=== PATIENT | female | born 1975 | race Caucasian/White ===

== ENCOUNTER 2018-06-14 20:49 | Observation (INO) | payer BC, OTHER ==
[2018-06-14 21:20] LABS: PLATELET COUNT 235 10^3/uL (150-400)
[2018-06-14] MEDS ORDERED: METOPROLOL TARTRATE 25 MG TAB PO ONE (21:44)
--- NOTE | 2018-06-14 21:54 | EDPHY ---
H & P Stated Complaint: "HEART POUNDING, IRREGULAR HR X 24 HRS" Time Seen by Provider: 06/14/18 20:58 HPI/ROS: CHIEF COMPLAINT: Palpitations HISTORY OF PRESENT ILLNESS: 43-year-old female presents with palpitations. Onset of intermittent palpitations yesterday evening. The palpitations are frequent and rapid. Occasional dizziness when stands up from a seated position. No associated shortness of breath or chest pressure. No prior similar palpitations. No history of thyroid disease and no recent prolonged travel. REVIEW OF SYSTEMS: complete 10 point ROS reviewed and is negative except for the noted elements in the HPI - Personal History LMP (Females 10-55): IUD In Place Current Tetanus Diphtheria and Acellular Pertussis (TDAP): Yes Tetanus Vaccine Date: <10 YRS - Medical/Surgical History Hx Asthma: No Hx Chronic Respiratory Disease: No Hx Diabetes: No Hx Cardiac Disease: No Hx Renal Disease: No Hx Cirrhosis: No Hx Alcoholism: No Hx HIV/AIDS: No Hx Splenectomy or Spleen Trauma: No Other PMH: DENIES - Social History Smoking Status: Never smoked Alcohol Use: Sober Drug Use: None - Physical Exam Exam: General Appearance: Alert, pleasant Eyes: Pupils equal and round, no conjunctival pallor ENT, Mouth: Mucous membranes moist Neck: Normal inspection Respiratory: Lungs are clear to auscultation Cardiovascular: Regular rate and rhythm, alternating with a regular tachycardia Gastrointestinal: Abdomen is soft and nontender Neurological: A&O, nonfocal exam Skin: Warm and dry, no rash Extremities: Nontender, no pedal edema Psychiatric: Mood and affect normal Constitutional: Initial Vital Signs Temperature (C) 36.7 C 06/14/18 20:53 Heart Rate 75 06/14/18 20:53 Respiratory Rate 16 06/14/18 20:53 Blood Pressure 111/80 06/14/18 20:53 O2 Sat (%) 98 06/14/18 20:53 O2 Delivery Mode Room Air Allergies/Adverse Reactions: No Known Allergies Allergy (Unverified 06/14/18 20:52) Home Medications: Medication Instructions Recorded Sertraline HCl [Zoloft 100mg (*)] 150 mg PO HS 06/14/18 Medical Decision Making - Diagnostics EKG Interpretation: EKG interpreted by me reveals sinus rhythm, alternating with atrial flutter, no ST or T segment changes. Interpretation: Abnormal EKG Imaging Results: CXR: NAD Imaging: I viewed and interpreted images myself ED Course/Re-evaluation: This patient presents with intermittent palpitations. EKG reveals intermittent atrial flutter. Dr. Lucrecia Almonte was consulted and suggests observation in the hospital, metoprolol 12.5 mg twice daily and echocardiogram in the morning. Discussed with patient, agrees to admission. Hospitalist service was consulted for admission. Metoprolol 12.5 mg and Eliquis given in ED. Pt stable throughout ED stay. Differential Diagnosis: Differential diagnosis includes though it is not limited to pneumonia, pneumothorax, pulmonary embolism, aortic dissection, pericarditis, acute coronary syndrome. - Data Points Laboratory Results: Laboratory Results 06/14/18 21:09 06/14/18 21:09 06/14/18 06/14/18 21:09 21:09 D-Dimer 0.33 ug/mLFEU ug/mLFEU (0.00-0.50) TSH 3.270 uIU/mL uIU/mL (0.465-4.680) Medications Given: Metoprolol Tartrate (Lopressor) 12.5 mg PO BID JATINDER Stop: 12/12/18 08:59 Last Admin: 06/15/18 09:55 Dose: 12.5 mg Discontinued Medications Apixaban (Eliquis) 5 mg PO BID JATINDER Stop: 12/11/18 21:59 Last Admin: 06/15/18 09:56 Dose: Not Given Metoprolol Tartrate (Lopressor) 12.5 mg PO EDNOW ONE Stop: 06/14/18 21:45 Last Admin: 06/14/18 21:58 Dose: 12.5 mg Point of Care Test Results: Chemistry 06/14/18 21:13 POC Troponin I 0.00 ng/mL ng/mL (0.00-0.08) Departure - Departure Disposition: [facility] Inpatient Acute Clinical Impression: Atrial fibrillation and flutter Condition: Fair
[2018-06-14] MEDS: APIXABAN 5 MG TAB PO SCH (22:13)
--- NOTE | 2018-06-14 22:29 | CPEKG ---
Test Reason : OPEN Blood Pressure : / mmHG Vent. Rate : 111 BPM Atrial Rate : 114 BPM P-R Int : 174 ms QRS Dur : 097 ms QT Int : 375 ms P-R-T Axes : -16 052 003 degrees QTc Int : 510 ms Atrial flutter with predominant 2:1 AV block Borderline prolonged QT interval Confirmed by Viv Rush ([id number]) on 06/14/2018 10:29:36 PM Referred By: Viv Rush Confirmed By:Viv Rush
--- NOTE | 2018-06-14 22:46 | GHP ---
DATE OF ADMISSION: 06/14/2018 CHIEF COMPLAINT: Heart palpitations. HISTORY OF PRESENT ILLNESS: This is a 43-year-old female without past medical history who presented today with heart palpitations. She states that she first noted some fluttering yesterday. It was as sociated with some mild lightheadedness but that was only with standing. She has had no syncope. Sh melissa denies episodes of palpitations in the past. She denies any stimulants or caffeine use. She denie s any alcohol use. Her exercise tolerance is usually quite good. She completed the [employer] [place] this past fall. She is currently running about 15 miles per week. Her energy levels are described as good. Her athletic performance has been slightly deteriorating but she has attributed that to her increasing age. PAST MEDICAL HISTORY: None. PAST SURGICAL HISTORY: D and C. HOME MEDICATIONS: Zoloft. ALLERGIES: No known drug allergies. SOCIAL HISTORY: She denies any alcohol, tobacco, or illicit drug use. FAMILY HISTORY: Reviewed and noncontributory. PHYSICAL EXAM: VITAL SIGNS: Blood pressure 111/80, pulse 75, respiratory rate 16, O2 saturation 98% on room air. Temperature afebrile. GENERAL: No acute distress. HEAD: Normocephalic, atraumatic. EYES: PERRLA. Sclerae anicteric. MOUTH: Moist mucous membranes. NECK: Supple. No lymphadenop athy. CARDIOVASCULAR: S1, S2, tachycardic, irregularly irregular. There is no JVD. There is no lo wer extremity edema. PULMONARY: Lungs are clear. No wheezes, rales, or rhonchi. ABDOMEN: Soft, n ontender, nondistended. No guarding or rebound tenderness. Normoactive bowel sounds. EXTREMITIES: No clubbing or cyanosis. NEURO: Cranial nerves 2-12 grossly intact. No focal motor or sensory def icits. SKIN: Clear. No rashes. DIAGNOSTICS: WBC is 5.05, hemoglobin 13.2, hematocrit 40.4, platelets 235. D-dimer is pending. Sod ium 135, potassium 3.8, chloride 103, CO2 of 25, BUN 12, creatinine 1, glucose 98. TSH is pending. Troponin was negative. EKG, which I visualized and personally interpreted, shows atrial flutter with 2:1 AV block and borderline prolonged QT interval. Rate was 111 beats per minute. ASSESSMENT/PLAN: A 43-year-old female presenting with palpitations, found to have atrial fibrillatio n versus flutter. PLAN: I discussed the case with Dr. Rush in the emergency department, who has been in contact with Oscar Almonte from Cardiology, who will see the patient in the morning. I have ordered an echocardio gram. She will be placed n.p.o. after midnight in case the cardiology service wants to proceed with cardioversion. We will start Eliquis 5 mg p.o. b.i.d. for thromboembolic prophylaxis. We will start metoprolol 12.5 mg p.o. b.i.d. for rate control and titrate as indicated. The patient will be placed on observation. She requests to be full code status. /[id number]/MODL
[2018-06-15] MEDS ORDERED: METOPROLOL TARTRATE 25 MG TAB PO SCH (09:00)
[2018-06-15] MEDS: APIXABAN 5 MG TAB PO SCH (09:56)
--- NOTE | 2018-06-15 11:05 | GCON ---
CARDIOLOGY CONSULTATION REFERRING PHYSICIAN: Jorge Villalobos DO SUPERVISING AUDIOVISUAL TECHNICIAN: Dr. Kolby Vegas. INDICATION FOR CONSULTATION: Possible atrial flutter. HISTORY OF PRESENT ILLNESS: The patient is a 43-year-old female, who reports really no significant m edical history. She does state that she has had a long history, since her teen years, of having occa sional episodes of a "fluttering sensation" in her chest pressure that comes on briefly, less for les s than a few seconds and dissipates. She has never had any kind of significant cardiac followup sinc e then. She does state starting approximately 2 days ago, that she had noted the symptoms happening more frequently, lasting for a few seconds, then dissipating, but happening for multiple hours. She did note that at times she had some lightheadedness with these symptoms, while standing, but she repo rted no syncope or near syncopal events. She denies any chest pain or shortness of breath associated symptoms. She does state that since initially starting these 2 days ago, that she felt the symptoms had worsened yesterday to the point that significantly concerned her, she did call her yemcpq-kd-may , who is a horticultural specialty grower inside, who advised her to come to the emergency department for further evaluation. Upon arrival, electrocardiogram was done, with my interpretation of sinus rhythm with brief runs of PSVT, possible atrial tachycardia. Chest x-ray showed no acute cardiopulmonary process. Initial lab oratory studies showing no anemia, normal electrolyte and renal function, normal TSH level. Negative troponin. There was concern by the emergency department physician and hospitalist that potentially this was atrial fibrillation/flutter. She was started on low-dose beta-norma metoprolol and antico agulation of Eliquis. She does state that after receiving her initial dose of metoprolol, she does s sr that her symptoms did subside for a bit, but did feel them start worsening this morning. She de nies any chest pressure, pain, or shortness of breath. Reports no orthopnea, PND, edema. Reports no symptoms suggestive of TIA or CVA. She does state that she has been in her normal state of health, denying of any recent fevers, chills or night sweats. She takes Zoloft for depression, but reports s he has had no significant medication changes and has not discontinued recently. She reports no signi ficant change in diet. She states she drinks 2-3 cups of coffee a day, occasional alcohol, but has r eally not changed anything in lifestyle patterns. She reports no significant family history of cardi ac problems and denies of any family history of sudden cardiac or of unknown reason. PAST MEDICAL HISTORY: Mild depression. PAST SURGICAL HISTORY: D and C. FAMILY HISTORY: She reports no significant family history of coronary disease for family history of arrhythmias. 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 She is . She has children. She denies any to bacco abuse. She does report 1-2 drinks per week of alcohol. As mentioned above, she drinks maybe 2 -3 cups of coffee a day. She denies any illicit drug use. ALLERGIES: No known drug allergies. HOME MEDICATIONS: Include Zoloft 150 mg p.o. at bedtime. REVIEW OF SYSTEMS: A 10-point review of systems done on patient, all negative except as mentioned ab ove. PHYSICAL EXAMINATION: GENERAL: A thin, well-groomed, female. She is alert and oriented t o person, place, time, situation, appears to be under no acute distress. VITAL SIGNS: Current vital signs are blood pressure of 87/49, heart rate is currently sinus bradycardia at a rate of 53, respir ations 17, saturating 96% on room air, temperature 36.9 degrees Celsius. HEENT: Head is normocephal ic. Lips and tongue are pink and moist with no signs of cyanosis. Conjunctivae pink. NECK: Trache a is midline. +2 carotid pulses bilateral. No auscultated bruits. No jugular vein distention. RES PIRATORY: Lungs are clear to auscultation. No rhonchi, rales or wheezes. No accessory muscle use. No intercostal muscle retraction noted. CARDIAC: Regular rate, regular rhythm. S1, S2. No S3, S4 , gallops, rubs or murmurs noted. ABDOMEN: Soft, nontender, bowel sounds are 4 quadrants. No organ omegaly. No palpable masses. SKIN: [place] [address] [place], warm, dry. No cyanosis, no clubbing, no peripheral edema . VASCULAR: +2 carotids bilateral, +2 radials bilateral, +2 dorsal pedal and posterior tibial pulse s bilateral. LABORATORY STUDIES: Laboratory studies drawn on admission showing WBC of 5.05, hemoglobin 13.2, anotnieta tocrit of 40.8, platelet count of 235. D-dimer of 0.33. Sodium 135, potassium 3.8, chloride 103, CO 2 25, BUN 12, creatinine 1.0, glucose 98, calcium 9.1. Troponin 0.00. TSH 3.270. STUDIES: Electrocardiogram and chest x-ray as mentioned above. Preliminary echocardiogram done this morning showed normal LV systolic function with no wall motion abnormalities, no significant valvula r heart disease. ASSESSMENT AND PLAN: Episodes of supraventricular tachycardia: Reviewing electrocardiogram from the emergency department and overnight telemetry, it appears the patient is having short runs of suprave ntricular tachycardia, but overall underlying rhythm is sinus. Potentially atrial tachycardia. The patient does report improvement with metoprolol. Preliminary echo showing no significant structural heart disease. She was noted to have normal electrolyte, renal function, TSH level, no anemia and no signs of infection off initial laboratory studies. At this time, I do not think this is atrial fibr illation or atrial flutter. She has a very low risk for a thrombotic event. I will discontinue her Eliquis. We will continue her on the current dose of metoprolol, but I am hesitant to increase dosag e due to her underlying rhythm is sinus bradycardia. I would like to repeat a BMP and a magnesium le gloria this morning for further evaluation. I have also reviewed her electrocardiograms with Dr. Leon of Electrophysiology Services, and I have asked him to consult too. I have discussed with the patient the importance of decreased caffeine intake, hydration, decrease EtOH intake, and avoid OTC medicatio ns that may be proarrhythmic. Thank you for this consultation. We will be glad to follow along with you. /[id number]/MODL
--- NOTE | 2018-06-15 11:16 | ECHO ---
[email or web address] [address] [address] Main: [phone] Fax: Transthoracic Echocardiogram Name: SARAH HARPER MR#: [id number] Study Date: 06/15/2018 Study Time: 08:12 AM Date of : 1975 Age: 43 year(s) Height: 157.5 cm (62 in.) Weight: 52.16 kg (115 lb.) BSA: 1.51 m2 Gender: Female Examination: Echo Indication: new a fib Image Quality: Adequate Contrast: Requested by: Jorge Villalobos BP: 100 mmHg/72 mmHg Heart Rate: Rhythm: Indication: new a fib Procedure Staff Protohistorian: Jacqueline Crespo RDCS Reading Physician: Kolby Vegas MD Requesting Provider: Conclusions: Normal size left ventricle. Normal global systolic LV function. EF is 61 %. No regional wall motion abnormality. Trivial to mild mitral regurgitation. Mild tricuspid regurgitation is present. Right ventricular systolic pressure measures 22mmHg. There are no significant valvular abnormalities. Measurements: Chambers Valvular Assessment AV/MV Valvular Assessment TV/PV Normal Normal Normal Name Value Range Name Value Range Name Value Range Ao Debra (2D): 2.5 cm (1.4 cm-2.6 AV Vmax: 1.46 m/s (1 m/s-1.7 TR Vmax: 2.05 mm/s ( - ) cm) m/s) TR PGmax: 17 mmHg ( - ) IVSd (2D): 0.8 cm (0.6 cm-1.1 AV maxP mmHg ( - ) syst. PAP: 22 mmHg ( - ) cm) AV meanP mmHg ( - ) PV Vmax: 0.87 m/s (0.6 m/s-0.9 LVDd (2D): 3.9 cm (3.9 cm-5.3 JOANIE (VTI): 2.1 cm ( - ) m/s) cm) MV E Vmax: 1.10 m/s ( - ) PV PGmax: 3 mmHg ( - ) LVDs (2D): 2.6 cm (2.1 cm-4 MV PHT: 0.064 s ( - ) cm) MVA (PHT): 3.4 s ( - ) LVPWd (2D): 0.8 cm ( - ) LVOTd 1.8 cm 1.8 cm mm LVEF (BP): 61 % (>=55 %) RVDd(2D): 2.5 cm (1.9 cm-3.8 cmmm) Continued Measurements: Chambers Valvular Assessment AV/MV Valvular Assessment TV/PV Patient: SARAH HARPER Study Date: 06/15/2018 Page 1 of 2 08:12 AM Name Value Name Value Name Value LADs: 2.7 cm MV DecTime: 218 m/s CVP (est.): 5 mmHg LADs Lon.2 cm LA Area: 16.3 cm2 LA Volume: 31 ml LA Volume Index: 20.5 ml/m2 RA Area: 10.5 cm2 Additional Vessels Name Value Ao Ascendin.0 cm Findings: Left Ventricle: Normal size left ventricle. No LV hypertrophy. Normal global systolic LV function. EF is 61 %. No regional wall motion abnormality. Unable to assess diastolic dysfunction. Right Ventricle: Normal size right ventricle. Normal RV function. Left Atrium: The left atrium is normal in size. Right Atrium: The right atrium is normal in size. Mitral Valve: The mitral valve is normal in appearance and function. Trivial to mild mitral regurgitation. No mitral stenosis is present. Aortic Valve: The aortic valve is tri-leaflet. There is no significant aortic valve regurgitation. No aortic valve stenosis is present. Tricuspid Valve: The tricuspid valve is normal in appearance and function. Mild tricuspid regurgitation is present. The pulmonary artery pressure is normal. Right ventricular systolic pressure measures 22mmHg. Pulmonic Valve: The pulmonic valve is normal in appearance and function. Trivial pulmonic valve regurgitation. Aorta: The aorta is normal. Normal size aortic root measuring 2.5 cm. Normal size ascending aorta measuring 3.0 cm. IVC: The IVC is normal sized. Pericardium: No pericardial effusion. No pleural effusion. (No Signature Object) Patient: SARAH HARPER Study Date: 06/15/2018 Page 2 of 2 08:12 AM D:_[id number]
[2018-06-15 11:40] VITALS: BP 94/70
--- NOTE | 2018-06-15 13:18 | PDCARCONS ---
Cardiology Consult Reason for Consult: Atrial tachycardia Chief Complaint: Palpitations Requesting Physician: Ilya Jeffrey nurse practitioner Kolby Vegas MD History of Present Illness: I visited with this very pleasant 43[facility] Her and her parents in [facility] present in the room. 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 Martha has had intermittent palpitations for 2 years. Yesterday they were more frequent and occurring constantly and therefore she came to the emergency department. She was initially thought to be in atrial flutter but later determined to be in atrial tachycardia. I have reviewed ECG and telemetry that shows short salvos of atrial tachycardia. She denies chest discomfort with these episode. She has had orthostatic lightheadedness but no syncope. There are no specific triggers to these episodes. She denies alcohol or drug use, undue stress or lack of sleep. She reports that she drinks 2 cups of coffee per day. History Information - Allergies/Home Medication List Allergies/Adverse Reactions: No Known Allergies Allergy (Unverified 06/14/18 20:52) Home Medications: Sertraline HCl [Zoloft 100mg (*)] 150 mg PO HS 06/14/18 [Last Taken Unknown] I have personally reviewed and updated: family history, medical history, social history, surgical history Past Medical History: - Social History Smoking Status: Never smoked Alcohol Use: Sober Drug Use: None Physical Exam Physical Exam: Temp Pulse Resp BP Pulse Ox 36.6 C 68 16 94/70 L 94 06/15/18 11:38 06/15/18 11:38 06/15/18 11:38 06/15/18 11:38 06/15/18 11:38 Constitutional: no apparent distress, appears nourished, not in pain Ears, Nose, Mouth, Throat: moist mucous membranes, hearing normal Cardiovascular: regular rate and rhythym, no murmur, rub, or gallop Respiratory: no respiratory distress Gastrointestinal: normoactive bowel sounds, soft, non-tender abdomen Skin: warm Neurologic: AAOx3 Psychiatric: interacting appropriately, not anxious, not encephalopathic Lab and Imaging 06/14/18 21:09 06/15/18 10:30 WBC 5.05 10^3/uL (3.80-9.50) 06/14/18 21:09 RBC 4.59 10^6/uL (4.18-5.33) 06/14/18 21:09 Hgb 13.2 g/dL (12.6-16.3) 06/14/18 21:09 Hct 40.4 % (38.0-47.0) 06/14/18 21:09 MCV 88.0 fL (81.5-99.8) 06/14/18 21:09 MCH 28.8 pg (27.9-34.1) 06/14/18 21:09 MCHC 32.7 g/dL (32.4-36.7) 06/14/18 21:09 RDW 14.8 % (11.5-15.2) 06/14/18 21:09 Plt Count 235 10^3/uL (150-400) 06/14/18 21:09 MPV 9.5 fL (8.7-11.7) 06/14/18 21:09 Neut % (Auto) 33.2 % (39.3-74.2) L 06/14/18 21:09 Lymph % (Auto) 53.9 % (15.0-45.0) H 06/14/18 21:09 Isabella % (Auto) 8.7 % (4.5-13.0) 06/14/18 21:09 Eos % (Auto) 3.2 % (0.6-7.6) 06/14/18 21:09 Baso % (Auto) 0.8 % (0.3-1.7) 06/14/18 21:09 Nucleat RBC Rel Count 0.0 % (0.0-0.2) 06/14/18 21:09 Absolute Neuts (auto) 1.68 10^3/uL (1.70-6.50) L 06/14/18 21:09 Absolute Lymphs (auto) 2.72 10^3/uL (1.00-3.00) 06/14/18 21:09 Absolute Monos (auto) 0.44 10^3/uL (0.30-0.80) 06/14/18 21:09 Absolute Eos (auto) 0.16 10^3/uL (0.03-0.40) 06/14/18 21:09 Absolute Basos (auto) 0.04 10^3/uL (0.02-0.10) 06/14/18 21:09 Absolute Nucleated RBC 0.00 10^3/uL (0-0.01) 06/14/18 21:09 Immature Gran % 0.2 % (0.0-1.1) 06/14/18 21:09 Immature Gran # 0.01 10^3/uL (0.00-0.10) 06/14/18 21:09 D-Dimer 0.33 ug/mLFEU (0.00-0.50) 06/14/18 21:09 Sodium 138 mEq/L (135-145) 06/15/18 10:30 Potassium 4.1 mEq/L (3.5-5.2) 06/15/18 10:30 Chloride 108 mEq/L (97-110) 06/15/18 10:30 Carbon Dioxide 22 mEq/l (22-31) 06/15/18 10:30 Anion Gap 8 mEq/L (6-14) 06/15/18 10:30 BUN 11 mg/dL (7-23) 06/15/18 10:30 Creatinine 0.7 mg/dL (0.6-1.0) 06/15/18 10:30 Estimated GFR > 60 06/15/18 10:30 Glucose 91 mg/dL (70-100) 06/15/18 10:30 Calcium 9.3 mg/dL (8.5-10.4) 06/15/18 10:30 Magnesium 1.9 mg/dL (1.6-2.3) 06/15/18 10:30 POC Troponin I 0.00 ng/mL (0.00-0.08) 06/14/18 21:13 TSH 3.270 uIU/mL (0.465-4.680) 06/14/18 21:09 Visualized and Interpreted Chest x-ray results: No Visualized and Interpreted imaging results: No Visualized and Interpreted EKG results: Yes Telemetry: Sinus rhythm with short salvos of atrial tachycardia Echocardiogram: Normal LV ejection fraction, mild TR A/P Assessment: Atrial tachycardia Plan: 43-year-old female with short salvos of what appears to be focal right atrial tachycardia. I reassured the patient that this is not a life-threatening arrhythmia. Her baseline blood pressure is in the 90s and she has orthostatic symptoms. We will cautiously start low-dose metoprolol at 12.5 mg twice daily. This may need to be up titrated if arrhythmias are not controlled. We discussed need to hydrate to avoid orthostatic hypotension. We discussed role of antiarrhythmic drugs We also discussed electrophysiology studies and ablation procedure. Risks and benefits of EPS/ablation including but not limited to risks of , myocardial infarction, stroke, tamponade which may require emergent cardiac surgery, AV block requiring implantation of a permanent pacemaker, vascular access complications which may require surgery, deep venous thrombosis, pulmonary embolism, infection, risks associated with sedation/anesthesia were discussed with the patient. If she fails medical therapy with beta-norma, consider ablation procedure All the questions were answered. This was a complex discussion with the patient due to need for review of records , discussion of pathophysiology of disease and discussion regarding multiple treatment modalities. I spent 45 minutes with the patient, more than 50% of which was spent in counseling.
--- NOTE | 2018-06-15 13:32 | GDS ---
DISCHARGE DIAGNOSES: 1. Intermittent atrial tachycardia. 2. Depression. CONSULTANTS: Ilya Jeffrey, Cardiology Service. IMAGING STUDIES: Echocardiogram June 14, 2018 shows normal left ventricular systolic function wit h an ejection fraction of 61%, no regional wall motion abnormality, trivial to mild mitral regurgitat ion, mild tricuspid regurgitation and right ventricular systolic pressure of 22, with no valve abnorm alities. HISTORY OF DETAILS: Please see history and physical dated June 14, 2018. In brief, the patient i s 43-year-old female with a history of mild depression, who presented to the emergency department wit h heart palpitations. There was some question if her EKG was consistent with atrial fibrillation adrianne truong runs of atrial tachycardia. She was admitted to the hospital for further management. HOSPITAL COURSE: Patient was admitted to the progressive care unit. She was started on metoprolol 1 2.5 mg twice daily. She was also started on Eliquis for presumed atrial fibrillation. However, I re viewed her telemetry and EKG with the Cardiology service, and this appears more consistent with a par oxysmal atrial tachycardia. She has evidence of sinus beat followed by multiple atrial beats, and th is comes and goes. Her symptoms have significantly improved on metoprolol, which she has been tolera ting well. She was evaluated by Dr. Leon, sales solutions representative, who recommended that she discharge wit h a prescription for metoprolol, and follow up with him in the clinic for an exercise treadmill stres s test and further management per his recommendations. DISPOSITION: Patient is discharged home in stable condition. FOLLOWUP: 1. Dr. Adam Leon, [facility]. 2. Dr. Shawna Alvarez, primary care. DISCHARGE MEDICATIONS: Please see [email or web address] completed outpatient medication list. New medications on discharge include metoprolol 12.5 mg p.o. b.i.d. #30, no refills. /[id number]/MODL
--- NOTE | 2018-06-15 15:53 | ASDISCHSUM ---
Discharge Information Plan Status:Home with No Needs Medically Cleared to Leave: Discharge Date:06/15/2018 01:55 PM CM D/C Disposition:Home, Routine, Self-Care ADT D/C Disposition:Home, Routine, Self-Care Projected Discharge Date:06/15/2018 01:55 PM Transportation at D/C:Family Discharge Delay Reason: Follow-Up Date:06/15/2018 01:55 PM Discharge Slot: Final Diagnosis: Placement Information Patient Contact Information Contact Name:KEVON Relationship: Address:[address] City:[facility] [facility] [place] Phone: [facility]/Zip Code:[place] [address] Email: Financial Information Financial Class:BC Primary Plan Desc:[employer] [facility] Primary Plan Number:[id number] Secondary Plan Desc: Secondary Plan Number: Assessment Information LACE LACE Length of stay for Answers: Less than 1 day current admission Acuity / Level of Answers: No Care: Did the patient have an inpatient admission? # of Emergency department Answers: 1-2 visits in the last 6 months Social determinants Answers: Mental health diagnosis (anxiety, depression, pers onality disorders, etc.) Score: 4 Date Signed: 06/15/2018 03:52 PM Electronically Signed By:KING Woo Case Management Discharge Plan Note Case Management Discharge Discharge Order Complete? Answers: Yes Patient to Obtain Answers: via Family Medications Transportation Arranged Answers: Family/Friends Discharge Comments Notes: Pt discharged independently. No CM needs ientified. Will follow-up with outpatient follow-up. Date Signed: 06/15/2018 03:52 PM Electronically Signed By:KING Woo Intervention Information
== END 2018-06-15 13:55 | disposition home or self-care (01) ==
LOC: F2W 22:23
PROVIDERS: ADMIT Family Medicine; ATTEND Hospitalist
DX: I47.1 Supraventricular tachycardia (principal); F32.9 Major depressive disorder, single episode, unspecified
CPT/HCPCS: 71046; 93005; 93306; 99285; G0378; 84484-ER